=== PATIENT | male | born 1970 | race Caucasian/White ===

== ENCOUNTER → 2016-05-22 | Outpatient (CLI) | payer BC | LOC: FIMAGING 15:28 | PROVIDERS: ATTEND Podiatrist Primary Podiatric Medicine | DX: M19.072 Primary osteoarthritis, left ankle and foot (principal); Z98.890 Other specified postprocedural states ==

== ENCOUNTER → 2016-06-20 | Day surgery (SDC) | payer BC | END | disposition home or self-care (01) | LOC: FIMAGING 13:11 | PROVIDERS: ATTEND Internal Medicine Infectious Disease | PROC: 02HV33Z Insertion of Infusion Device into Superior Vena Cava, Percutaneous Approach (ICD-10-PCS; principal; 2016-06-20) | DX: M86.172 Other acute osteomyelitis, left ankle and foot (principal) | CPT/HCPCS: 36569; 77001; C1751 ==